=== PATIENT | female | born 1995 | race African-American/Black ===

== ENCOUNTER 2020-05-07 15:51 | Emergency (ER) | payer SELFPAY ==
[~2020-05-07] VITALS: Ht 180.3 cm; Wt 66.2 kg
[2020-05-07] MEDS ORDERED: POLYTRIM EYE DR10 ML OS (16:35)
--- NOTE | 2020-05-07 16:35 | Emergency Department Note ---
History of Present Illnes History of Present Illness Chief Complaint: left eye redness and discharge s/p pulling fake eyelash History of Present Illness This is a 25 year old female. was doing well prior to this. Historian: Patient, Family Member Arrival Mode: Car History limited by: condition of the patient (normal) Bilingual Hr Generalist Required: No Onset (how long ago): day(s) (4) Location: left eye Quality: redness Radiation: Reports non-radiation Severity: mild Onset quality: gradual Duration (how long): day(s) (4) Timing of current episode: constant Progression: worsening Chronicity: new Context: Denies recent illness, Denies recent surgery, Denies recent immobilization, Denies recent travel, Denies trauma/injury, Denies new medications, Denies hx of DVT/PE, Denies non-compliance w/ medications Relieving factors: none Exacerbating factors: none Associated symptoms: Reports denies other symptoms Treatments prior to arrival: none Past Medical/Family History Physician Review I have reviewed the patient's past medical and family history. Any updates have been documented here. Past Medical History Recent Fever: No Clinical Suspicion of Infectio: No New/Unexplained Change in Ment: No Past Medical History: None Past Surgical History: None Social History Smoking Cessation: Never Smoker Alcohol Use: None Any Illegal Drug Use: No Other Any Pre-Existing Lines (PICC,: No Review of Systems Review of Systems Constitutional: Reports no symptoms EENTM: Reports as per HPI Cardiovascular: Reports no symptoms Respiratory: Reports no symptoms Gastrointestinal: Reports no symptoms Genitourinary: Reports no symptoms Musculoskeletal: Reports no symptoms Integumentary: Reports no symptoms Neurological: Reports no symptoms Psychological: Reports no symptoms Endocrine: Reports no symptoms Hematological/Lymphatic: Reports no symptoms Review of other systems: All other systems negative Physical Exam Related Data Allergies: Coded Allergies: No Known Allergies (Unverified , 05/07/20) Triage Vital Signs Vital Signs Date Time Temp Pulse Resp B/P (MAP) Pulse Ox O2 Delivery O2 Flow Rate FiO2 05/07/20 16:12 98.9 78 16 111/58 100 Room Air Vital signs reviewed: Yes Physical Exam CONSTITUTIONAL Constitutional: Present well-developed, Present well-nourished HENT HENT: Present normocephalic, Present atraumatic, Present oropharynx clear/moist, Present nose normal HENT L/R: Present left ext ear normal, Present right ext ear normal EYES Eyes: Reports PERRL, Reports left eye discharge, Reports other (left eye redness) NECK Neck: Present ROM normal, Present supple PULMONARY Pulmonary: Present effort normal, Present breath sounds normal CARDIOVASCULAR Cardiovascular: Present regular rhythm, Present heart sounds normal, Present capillary refill normal, Present normal rate GASTROINTESTINAL Abdominal: Present soft, Present nontender, Present bowel sounds normal GENITOURINARY Genitourinary: Present exam deferred SKIN Skin: Present warm, Present dry MUSCULOSKELETAL Musculoskeletal: Present ROM normal NEUROLOGICAL Neurological: Present alert, Present oriented x 3, Present no gross motor or sensory deficits PSYCHOLOGICAL Psychological: Present mood/affect normal, Present judgement normal Assessment & Plan Medical Decision Making MDM see below Assessment & Plan Final Impression: (1) Conjunctivitis Depart Disposition: HOME, SELF-CARE Last Vital Signs Date Time Temp Pulse Resp B/P (MAP) Pulse Ox O2 Delivery O2 Flow Rate FiO2 05/07/20 16:12 98.9 78 16 111/58 100 Room Air Home Meds Active Scripts Polymyxin B Sulfate/Tmp (POLYTRIM EYE DROPS) 10 Ml Drops, 1 DRP OS Q4HR, #1 BOTTLE Prov:VIDA JAMESON 05/07/20 VIDA JAMESON May 07, 2020 16:35
--- OUTSIDE RECORDS SUMMARY | 2020-05-07 17:21 | XMS REPORT | Clinical Summary ---
Author Author JESSICA [facility] Address Unknown Phone Unavailable Care Team Providers Care Boiler Installer Name Role Phone Terry Fuchs MD PCP Allergies No Known Allergies Medications End Date Status Medication Sig Dispensed Refills Start Date Active BALCOLTRA 0.1 mg-0.02 mg TAKE 1 TABLET 0 12/03 (21)/36.5 mg(7) Tab BY MOUTH ONCE 0 DAILY DIRECTED FOR 28 DAYS 12/26/2019 Discontinued (Error) terconazole (TERAZOL 7) INSERT 1 0 0.4 % vaginal cream APPLICATORFUL 9 VAGINALLY ONCE DAILY AT BEDTIME FOR 7 DAYS 12/31/2019 naproxen (NAPROSYN) 500 Take 1 tablet 10 tablet 0 MG tablet (500 mg 0 total) by mouth 2 (two) times daily with breakfast and dinner for 5 days. 12/31/2019 cyclobenzaprine Take 1 tablet 10 tablet 0 12/26/19 2 (FLEXERIL) 10 MG tablet (10 mg total) 0 by mouth 2 (two) times daily as needed for Muscle spasms for up to 5 days. Active Problems Not on file Encounters Care Team Description Date Type Specialty Radha Leos MD Acute chest wall pain (Primary Dx) 12/26/2019 Emergency Emergency Medicine 12/26/2019 Orders Only General Internal Me dicine after 05/07/2019 Social History Date Tobacco Use Types Packs/Day Years Used Never Smoker Smokeless Tobacco: Never Used Drinks/Week oz/Week Comments Alcohol Use No Sex Assigned at Date Recorded Not on file Last Filed Vital Signs Reading Time Taken Comments Vital Sign 105/69 12/26/2019 11:11 AM CDT Blood Pressure 56 12/26/2019 11:11 AM CDT Pulse 36.8 C (98.2 F) 12/26/2019 9:39 AM CDT Temperature 18 12/26/2019 9:39 AM CDT Respiratory Rate 100% 12/26/2019 11:11 AM CDT Oxygen Saturation - - Inhaled Oxygen Concentration 67.6 kg (149 lb) 12/26/2019 9:39 AM CDT Weight 180.3 cm (5' 11") 12/26/2019 9:39 AM CDT Height 20.78 12/26/2019 9:39 AM CDT Body Mass Index Plan of Treatment Not on file Procedures Comments Procedure Name Priority Date/Time Associated Diag nosis REPORT OF PROCEDURE - 12/28/2019 ENDOSCOPY SCAN 11:42 AM CDT XR CHEST 2 VIEWS STAT 12/26/2019 10:37 AM CDT CBC W/PLT COUNT & AUTO STAT 12/26/2019 DIFFERENTIAL 10:15 AM CDT HEPATIC FUNCTION PANEL STAT 12/26/2019 10:15 AM CDT BASIC METABOLIC PANEL (7) STAT 12/26/2019 10:15 AM CDT SCREEN, URINE STAT 12/26/2019 10:15 AM CDT CBC W/PLT COUNT & AUTO STAT 12/26/2019 DIFFERENTIAL 10:15 AM CDT RAPID TROPONIN I STAT 12/26/2019 10:15 AM CDT ECG 12-LEAD Routine 12/26/2019 9:36 AM CDT ECG 12-LEAD Routine 12/26/2019 9:36 AM CDT Procedure Note - Interface, External Ris In - 12/26/2019 12:31 PM CDT Ventricula r Rate 65 BPM Atrial Rate 65 BPM P-R Interval 198 ms QRS Duration 82 ms Q-T Interval 426 ms QTC Calculatio n(Bazett) 443 ms P [place] 78 degrees R [place] 85 degrees T [place] 65 degrees Normal sinus rhythm Normal ECG No previous ECGs available after 05/07/2019 Results * EKG-SCANNED (12/28/2019 11:42 AM CDT) Narrative Performed At This result has an attachment that is n ot available. * XR chest 2 views (12/26/2019 10:37 AM CDT) Specimen Narrative Performed At FINAL REPORT GE RIS CLINICAL HISTORY: CHEST PAIN ANXIETY TECHNIQUE: 2 views of the chest COMPARISON: None IMPRESSION: There are no focal infiltrates or effus ions. The cardiomediastinal silhouette is within normal limits for size. The osseous structures appear intact. Signed: José Miguel Tristan MD Report Verified Date/Time: 12/26/2019 10:55:56 Reading Location: [facility] Radiolo gy Reading Room Procedure Note Interface, External Ris In - 12/26/2019 10:58 AM CDT FINAL REPORT CLINICAL HISTORY: CHEST PAIN ANXIETY TECHNIQUE: 2 views of the chest COMPARISON: None IMPRESSION: There are no focal infiltrates or effusions. The cardiomediastinal silhouette is within normal limits for size. The osseous structures appear intact. Signed: José Miguel Tristan MD Report Verified Date/Time: 12/26/2019 10:55:56 Reading Location: [facility] Radiology Reading Room Performing Organization Address City/[facility] Ph one Number GE RIS * Rapid Troponin I ([facility] Only) (12/26/2019 10:15 AM CDT) Rapid Troponin <0.05 <0.05 ng/mL [facility], [facility] [place], [facility] Specimen Blood Performing Organization Address City/[facility] Centercode Ph one Number [facility] [address] [place] [address] [facility], [facility] * CBC with platelet count + automated diff (12/26/2019 10:15 AM CDT) WBC 6.7 4.0 - 10.0 K/L [facility], [facility] RBC 4.12 4.00 - 5.00 M/L [facility] Hemoglobin 13.5 12.0 - 15.0 GM/DL [facility] Hematocrit 40.4 36.0 - 45.0 % [facility] MCV 97.9 82.0 - 99.0 fL [facility] MCH 32.7 27.0 - 33.0 pg [facility] MCHC 33.4 32.0 - 36.0 GM/DL [facility] RDW 14.8 (H) 10.3 - 14.2 % [facility] Platelets 245 150 - 430 K/CU MM [facility] MPV 7.6 6.5 - 10.5 fL [facility] % Neutros 64 % [facility] % Lymphs 28 % [facility] % Monos 5 % [facility] % Eos 3 % [facility] % Baso 1 % [facility] # Neutros 4.25 1.80 - 8.00 K/L [facility] # Lymphs 1.85 1.48 - 4.50 K/L [facility] # Monos 0.35 0.00 - 1.30 K/L [facility] # Eos 0.20 0.00 - 0.50 K/L [facility], [facility], [facility] # Baso 0.03 0.00 - 0.20 K/L [facility] Specimen Blood Performing Organization Address City/[facility] Ph one Number [address] [address] [phone] [place] [address], [facility], [facility] * Screen, urine (12/26/2019 10:15 AM CDT) Preg Test, Ur Negative [facility] Specimen Urine Performing Organization Address [facility] Ph one Number [address] [address] [phone] [place] [address], [facility] * Hepatic function panel (12/26/2019 10:15 AM CDT) Protein, Total 7.6 6.0 - 8.5 gm/dL [facility] Albumin 4.3 3.5 - 5.0 g/dL [facility], [facility] Total Bilirubin 0.5 0.1 - 1.2 mg/dL [facility], [facility] Bilirubin, 0.0 0.0 - 0.4 mg/dL [facility], [facility] Alkaline 53 30 - 115 U/L [facility], [facility] AST 16 5 - 40 U/L [facility] ALT 10 5 - 50 U/L [facility], [facility] Specimen Blood Performing Organization Address [facility] Ph one Number [address] [place] [address] [facility], [facility] * Basic Metabolic Panel (12/26/2019 10:15 AM CDT) Sodium 140 135 - 148 meq/L [facility] Potassium 4.7 3.6 - 5.5 meq/L [facility] Chloride 107 (H) 98 - 106 meq/L [facility], [facility] CO2 29 24 - 32 meq/L [facility] BUN 12 10 - 26 mg/dL [facility] Creatinine 0.77 0.50 - 1.20 mg/dL [facility] Glucose 85 70 - 110 mg/dL [facility], [facility] Calcium 9.0 8.5 - 10.5 mg/dL [facility], [facility] EGFR 114Comment: ESTIMATED GFR IS mL/min/1.73 sq m [facility] NOT ACCURATE CREATININE [facility] CLEARANCE IN PREDICTING MEDICAL CENTER, GLOMERULAR FILTRATION RATE. [facility] ESTIMATED GFR IS NOT EMERGENCY APPLICABLE FOR DIALYSIS CENTER, PATIENTS. [facility] Specimen Blood Performing Organization Address City/State/[facility] Centercopr Ph one Number [facility] [phone] [place] [phone] [facility], [facility] * ECG 12 lead (12/26/2019 9:36 AM CDT) Specimen Narrative Performed At Ventricular Rate 65 BPM GE MUSE Atrial Rate 65 BPM P-R Interval 198 ms QRS Duration 82 ms Q-T Interval 426 ms QTC Calculation(Bazett) 443 ms P [place] 78 degrees R [place] 85 degrees T [place] 65 degrees Normal sinus rhythm Normal ECG No previous ECGs available Confirmed by Amado ALEX MICHAEL ([id number]) on 12/28/2019 6:56:58 AM Procedure Note Interface, External Ris In - 12/28/2019 6:57 AM CDT Ventricular Rate 65 BPM Atrial Rate 65 BPM P-R Interval 198 ms QRS Duration 82 ms Q-T Interval 426 ms QTC Calculation(Bazett) 443 ms P [place] 78 degrees R [place] 85 degrees T [place] 65 degrees Normal sinus rhythm Normal ECG No previous ECGs available Confirmed by Amado ALEX MICHAEL ([id number]) on 12/28/2019 6:56:58 AM Performing Organization Address City/State/Zipcode Ph one Number GE MUSE after 05/07/2019
--- OUTSIDE RECORDS SUMMARY | 2020-05-07 17:22 | XMS REPORT | Continuity of Care Document ---
Author Author [facility] t Organization [facility] Address [address] [place] [address] Phone Unavailable Care Team Providers Care Sack Maker Name Role Phone Zahraa Fuchs MD PCP Krystal Perez MDterrance Attphys [phone] KRYSTAL PEREZTerrance Attphys Unavailable Payers Payer Name Policy Type Policy Number Effective Date Expiration Date S ource Problems This patient has no known problems. Allergies, Adverse Reactions, Alerts Allergy Name Allergy Type Status Severity Reaction(s) Onset Date Inacti ve Date Treating Clinician Comments Source No Known Allergies DA Active U 2018-12-19 00:00:00 [facility] No Known Allergies DA Active U 2014-02-16 00:00:[address] [facility] Social History Social Habit Start Date Stop Date Quantity Comments Source Sex Assigned At [facility] Tobacco use and exposure 2019-12-26 00:00:00 2019-12-26 00:00:00 Maximino orozco used [facility] Alcohol intake 2019-12-26 00:00:00 2019-12-26 00:00:00 Current non-drinker of alcohol (finding) [facility] Smoking Status Start Date Stop Date Source Never smoker [facility] Medications Ordered Medication Name Filled Medication Name Start Date Stop Da te Current Medication? Ordering Clinician Indication Dosage Frequency Signature (SIG) Comments Components Source naproxen (NAPROSYN) 500 MG tablet 2019-12-26 00:00:00 2019 23:59:00 No 500mg Take 1 tablet (5 00 mg total) by mouth 2 (two) times daily with breakfast and dinner for 5 days. [facility] cyclobenzaprine (FLEXERIL) 10 MG tablet 00:00:00 2019-12-31 23:59:00 No 10mg Take 1 tablet (10 mg total) by mouth 2 (two) times daily as needed for Muscle spasms for up to 5 days. [facility] BALCOLTRA 0.1 mg-0.02 mg (21)/36.5 mg(7) Tab 2019-12-04 00:00:00 Yes TAKE 1 TABLET BY MOUTH ONCE DAILY DIRECTED FOR 28 DAYS [facility] terconazole (TERAZOL 7) 0.4 % vaginal cream 2018 00:00:00 2019-12-26 00:00:00 No INSERT 1 APPLI CATORFUL VAGINALLY ONCE DAILY AT BEDTIME FOR 7 DAYS [facility] Vital Signs Vital Name Observation Time Observation Value Comments Source Systolic blood pressure 2019-12-26 11:11:00 105 mm[Hg] [facility] Diastolic blood pressure 2019-12-26 11:11:00 69 mm[Hg] [facility] Heart rate 2019-12-26 11:11:00 56 /min [facility] Oxygen saturation in Arterial blood by Pulse oximetry 12-25 11:11:00 100 [facility] Body temperature 2019-12-26 09:39:00 36.78 Taylor [facility] Respiratory rate 2019-12-26 09:39:00 18 /min [facility] Body height 2019-12-26 09:39:00 180.3 cm [facility] Body weight 2019-12-26 09:39:00 67.586 kg [facility] BMI 2019-12-26 09:39:00 20.78 kg/m2 [facility] Procedures Procedure Date / Time Performed Performing Clinician [facility] e REPORT OF PROCEDURE - ENDOSCOPY SCAN 2019-12-28 11:42:31 Pro vider, Default Scanning [facility] XR CHEST 2 VIEWS 2019-12-26 10:37:00 [place], [facility] RAPID TROPONIN I 2019-12-26 10:15:00 [facility] SCREEN, URINE 2019-12-26 10:15:00 [facility], [facility] BASIC METABOLIC PANEL (7) 2019-12-26 10:15:00 [facility] HEPATIC FUNCTION PANEL 2019-12-26 10:15:00 [facility] CBC W/PLT COUNT & AUTO DIFFERENTIAL 2019-12-26 10:15:00 [facility] ECG 12-LEAD 2019-12-26 09:36:37 Unknown, H[facility] Doctor [facility] Results Test Description Test Time Test Comments Results Result Comments Source ECG 12 lead 2019-12-28 06:56:59 Interface, E xternal Ris In - 12/28/2019 6:57 AM CDTVentricular Rate 65 BPMAtrial Rate 65 BPMP-R Interval 198 msQRS Duration 82 msQ-T Interval 426 msQTC Calculation(Bazett) 443 msP [place] 78 degreesR [place] 85 degreesT [place] 65 degreesNormal sinus rhythmNormal ECGNo previous ECGs availableConfirmed by Amado ALEX MICHAEL ([id number]) on 12/28/2019 6:56:58 AM [facility] RAD, CHEST, 2 VIEWS 2019-12-26 10:55:00 Reason for exam:->CH EST PAINReason for exam:->ANXIETY FINAL REPORT CLIN ICAL HISTORY: CHEST PAINANXIETY TECHNIQUE: 2 views of the chest COMPARISON: None IMPRESSION: There are no focal infiltrates or effusions. The cardiomediastinal silhouette is within normal limits for size. The osseous structures appear intact. Signed: José Miguel Tristan MDReport Verified Date/Time: 12/26/2019 10:55:56 Reading Location: [facility] Radiology Reading Room chest 2 views 2019-12-26 10:55:00 Interface, External Ris In - 12/26/2019 10:58 AM CDTFINAL REPORT CLINICAL HISTORY: CHEST PAINANXIETY TECHNIQUE: 2 views of the chest COMPARISON: None IMPRESSION: There are no focal infiltrates or effusions. The cardiomediastinal silhouette is within normal limits for size. The osseous structures appear intact. Signed: José Miguel Tristan Verified Date/Time: 12/26/2019 10:55:56 Reading Location: [facility] Radiology Reading Room [facility] Rapid Troponin I ([facility] Only) 2019-12-26 10:46:00 Test Item Rapid Troponin I (test code = 1483) <0.05 <0.05 ng/mL Lab Interpretation (test code = 14416-9) Normal [facility] [id number] 10:46:00* Test Item Value Reference Range Interpretation Comments RAPID TROPONIN I (BEAKER) (test code = 1483) < ng/mL <0.05 Basic Metabolic [id number] 10:33:00* Test Item Value Reference Range Interpretation Comments Sodium (test code = 2951-2) 140 meq/L 135-148 Potassium (test code = 2823-3) 4.7 meq/L 3.6-5.5 Chloride (test code = 2075-0) 107 meq/L 98-106 H CO2 (test code = 8-9) 29 meq/L 24-32 BUN (test code = 3094-0) 12 mg/dL 10-26 Creatinine (test code = 2160-0) 0.77 mg/dL 0.5-1.2 Glucose (test code = 2345-7) 85 mg/dL 70-110 Calcium (test code = 36866-0) 9.0 mg/dL 8.5-10.5 EGFR (test code = 73939-8) 114 mL/min/1.73 sq m ESTIMATED GFR IS NOT ACCURATE CREATININE CLEARANCE IN PREDICTING GLOMERULAR FILTRATION RATE. ESTIMATED GFR IS NOT APPLICABLE FOR DIALYSIS PATIENTS. Lab Interpretation (test code = 04761-7) Abnormal [facility] function [id number] 10:33:00* Test Item Value Reference Range Interpretation Comments Protein, Total (test code = 2885-2) 7.6 6.0- 8.5 gm/dL Albumin (test code = 91405-5) 4.3 g/dL 3.5-5 Total Bilirubin (test code = 1974-2) 0.5 mg/dL 0.1-1.2 Bilirubin, Direct (test code = 1967-7) 0.0 mg/dL 0-0.4 Alkaline Phosphatase (test code = 6768-6) 53 U/L 30-115 AST (test code = 1920-8) 16 U/L 5-40 ALT (test code = 1742-6) 10 U/L 5-50 Lab Interpretation (test code = 60970-6) Normal [facility] METABOLIC [id number] 10:33:00* Test Item Value Reference Range Interpretation Comments SODIUM (BEAKER) (test code = 381) 140 meq/L 135-148 POTASSIUM (BEAKER) (test code = 379) 4.7 meq/L 3.6-5.5 CHLORIDE (BEAKER) (test code = 382) 107 meq/L 98-106 H CO2 (BEAKER) (test code = 355) 29 meq/L 24-32 BLOOD UREA NITROGEN (BEAKER) (test code = 354) 12 mg/dL 10-26 CREATININE (BEAKER) (test code = 358) 0.77 mg/dL 0.50-1.20 GLUCOSE RANDOM (BEAKER) (test code = 652) 85 mg/dL 70-110 CALCIUM (BEAKER) (test code = 697) 9.0 mg/dL 8.5-10.5 EGFR (BEAKER) (test code = 1092) 114 mL/min/1.73 sq m ESTIMATED GFR IS NOT ACCURATE CREATININE CLEARANCE IN PREDICTING GLOMERULAR FILTRATION RATE. ESTIMATED GFR IS NOT APPLICABLE FOR DIALYSIS PATIENTS. HEPATIC FUNCTION [id number] 10:33:00* Test Item Value Reference Range Interpretation Comments TOTAL PROTEIN (BEAKER) (test code = 770) 7.6 gm/dL 6.0-8.5 ALBUMIN (BEAKER) (test code = 1145) 4.3 g/dL 3.5-5.0 BILIRUBIN TOTAL (BEAKER) (test code = 377) 0.5 mg/dL 0.1-1.2 BILIRUBIN DIRECT (BEAKER) (test code = 706) 0.0 mg/dL 0.0-0.4 ALKALINE PHOSPHATASE (BEAKER) (test code = 346) 53 U/L 30-115 AST (SGOT) (BEAKER) (test code = 353) 16 U/L 5-40 ALT (SGPT) (BEAKER) (test code = 347) 10 U/L 5-50 Screen, [id number] 10:26:00* Test Item Value Reference Range Interpretation Comments Preg Test, Ur (test code = 2112-1) Negative [facility] S[facility]EN, [id number] 10:26:00* Test Item Value Reference Range Interpretation Comments TEST URINE (BEAKER) (test code = 583) Negative CBC with platelet count + automated [id number] 10:23:00* Test Item Value Reference Range Interpretation Comments WBC (test code = 6690-2) 6.7 4.0- 10.0 K/L RBC (test code = 789-8) 4.12 4.00- 5.00 M/L MCHC (test code = 786-4) 33.4 32.0- 36.0 GM/DL Hematocrit (test code = 4544-3) 40.4 % 36-45 MCV (test code = 787-2) 97.9 fL 82-99 MCH (test code = 785-6) 32.7 pg 27-33 RDW (test code = 788-0) 14.8 % 10.3-14.2 H Platelets (test code = 777-3) 245 150- 430 K/CU MM MPV (test code = 91323-5) 7.6 fL 6.5-10.5 % Neutros (test code = 429) 64 % % Lymphs (test code = 430) 28 % % Monos (test code = 431) 5 % % Eos (test code = 432) 3 % % Baso (test code = 437) 1 % # Neutros (test code = 670) 4.25 1.80- 8.00 K/L # Lymphs (test code = 414) 1.85 1.48- 4.50 K/L # Monos (test code = 415) 0.35 0.00- 1.30 K/L # Eos (test code = 416) 0.20 0.00- 0.50 K/L # Baso (test code = 417) 0.03 0.00- 0.20 K/L Lab Interpretation (test code = 02688-1) Abnormal [facility] W/PLT COUNT & AUTO [id number] 10:23:00* Test Item Value Reference Range Interpretation Comments WHITE BLOOD CELL COUNT (BEAKER) (test code = 775) 6.7 K/ L 4.0- 10.0 RED BLOOD CELL COUNT (BEAKER) (test code = 761) 4.12 M/ L 4.00-5 .00 HEMOGLOBIN (BEAKER) (test code = 410) 13.5 GM/DL 12.0-15.0 HEMATOCRIT (BEAKER) (test code = 411) 40.4 % 36.0-45.0 MEAN CORPUSCULAR VOLUME (BEAKER) (test code = 753) 97.9 fL 82. 0-99.0 MEAN CORPUSCULAR HEMOGLOBIN (BEAKER) (test code = 751) 32.7 pg 27.0-33.0 MEAN CORPUSCULAR HEMOGLOBIN CONC (BEAKER) (test code = 752) 33.4 GM/DL 32.0-36.0 RED CELL DISTRIBUTION WIDTH (BEAKER) (test code = 412) 14.8 % 10.3-14.2 H PLATELET COUNT (BEAKER) (test code = 756) 245 K/CU MM 150-430 MEAN PLATELET VOLUME (BEAKER) (test code = 754) 7.6 fL 6.5-10 .5 NEUTROPHILS RELATIVE PERCENT (BEAKER) (test code = 429) 64 % LYMPHOCYTES RELATIVE PERCENT (BEAKER) (test code = 430) 28 % MONOCYTES RELATIVE PERCENT (BEAKER) (test code = 431) 5 % EOSINOPHILS RELATIVE PERCENT (BEAKER) (test code = 432) 3 % BASOPHILS RELATIVE PERCENT (BEAKER) (test code = 437) 1 % NEUTROPHILS ABSOLUTE COUNT (BEAKER) (test code = 670) 4.25 K/ L 1.80-8.00 LYMPHOCYTES ABSOLUTE COUNT (BEAKER) (test code = 414) 1.85 K/ L 1.48-4.50 MONOCYTES ABSOLUTE COUNT (BEAKER) (test code = 415) 0.35 K/ L 0. 00-1.30 EOSINOPHILS ABSOLUTE COUNT (BEAKER) (test code = 416) 0.20 K/ L 0.00-0.50 BASOPHILS ABSOLUTE COUNT (BEAKER) (test code = 417) 0.03 K/ L 0. 00-0.20
== END 2020-05-07 17:06 | disposition home or self-care (01) ==
LOC: FSED 16:29
DX: H10.9 Unspecified conjunctivitis (principal)
CPT/HCPCS: 99282